=== PATIENT | male | born 1945 ===

== ENCOUNTER 2020-07-12 22:23 | Emergency (ER) | payer SELFPAY ==
[~2020-07-12] VITALS: Ht 165.1 cm; Wt 66.0 kg
[2020-07-12 22:30] VITALS: BP 161/71
[2020-07-12] MEDS ORDERED: PLEASE ENTER ALLERGIES MC SCH (23:30)
[2020-07-12] MEDS ORDERED: DIPH,PERTUSS(ACELL),TET VAC/PF 0.5 ML IM-VACC ONE (23:30)
== END 2020-07-13 01:47 | disposition left against medical advice (07) ==
LOC: ED 07-13
DX: S40.811A Abrasion of right upper arm, initial encounter (principal); M54.5 Low back pain; M54.2 Cervicalgia; R07.89 Other chest pain; R51 Headache; W01.0XXA Fall on same level from slipping, tripping and stumbling without subsequent striking against object, initial encounter; Y93.89 Activity, other specified; Y92.59 Other trade areas as the place of occurrence of the external cause; Y99.8 Other external cause status
CPT/HCPCS: 70450; 72125; 99285